=== PATIENT | male | born 1980 | race Caucasian/White ===

== ENCOUNTER 2017-11-21 11:54 | Inpatient (IN) | payer BC ==
[2017-11-21] VITALS (7 sets, daily range): BP systolic 108–135; BP diastolic 66–86
[~2017-11-21] VITALS: Ht 172.7 cm; Wt 70.3 kg
--- NOTE | 2017-11-21 12:00 | NUR ---
37 yo male bb self. patient is alet and oriented c/o lower abd pain with an episode of n/v. patient ambulated to er bed, skin warm and dry, resp even and unlabored. awaiting order from provider, will continue to monitor
[2017-11-21] MEDS ORDERED: MORPHINE SULFATE INJ 4 MG/ML DISP.SYRIN ONE (12:06)
[2017-11-21] MEDS ORDERED: ONDANSETRON HCL/PF 4 MG/2 ML VIAL ONE (12:06)
--- NOTE | 2017-11-21 12:14 | NUR ---
20g right ac iv started, blood sample obtained and sent to lab. medicated pt as ordered
[2017-11-21 12:17] LABS: BASOPHILS # (AUTO) 0.4 /CMM (0.0-0.2); BASOPHILS % (AUTO) 2.2 % (0.0-2.0); EOSINOPHILS % (AUTO) 0.1 % (0.0-6.0); HEMATOCRIT 45 % (39-51); HEMOGLOBIN 15.5 g/dL (13.5-17.5); LYMPHOCYTES # (AUTO) 0.8 /CMM (0.8-4.8); LYMPHOCYTES % (AUTO) 4.5 % (20.0-44.0); MEAN CORPUSCULAR HGB CONC 34 g/dl (31.0-36.0); MEAN CORPUSCULAR VOLUME 89 fL (80-96); MONOCYTES # (AUTO) 1.1 /CMM (0.1-1.30); MONOCYTES % (AUTO) 6.4 % (2.0-12.0); NEUTROPHILS # (AUTO) 14.7 /CMM (1.8-8.9); NEUTROPHILS % (AUTO) 86.8 % (43.0-81.0); PLATELET COUNT (AUTO) 186 /CMM (150-450); RDW COEFFICIENT OF VARIATION 12.7 (11.5-15.0); RED BLOOD CELL COUNT(AUTO) 5.06 MIL/uL (4.5-6.0)
[2017-11-21 12:18] LABS: APPEARANCE,URINE Clear (CLEAR); BILIRUBIN,URINE Negative (NEGATIVE); BLOOD, URINE Negative Ery/uL (NEGATIVE); COLOR,URINE Dark (YELLOW); KETONES,URINE Negative (NEGATIVE); LEUKOCYTE ESTERASE ,URINE Negative (NEGATIVE); NITRITE, URINE Negative (NEGATIVE); PROTEIN,URINE 30 mg/dl (NEGATIVE); UGLUCOSE Negative (NEGATIVE); UROBILINOGEN,URINE 0.2 EU/dL (0.2)
[2017-11-21 12:20] LABS: PH,URINE >9.0 (5.0-8.0)
[2017-11-21 12:24] LABS: BACTERIA,URINE None seen /HPF (None Seen); MUCUS,URINE Few /LPF (None Seen); RBC,URINE 0-2 /HPF (0-2); SQUAMOUS EPITHELIAL CELL,UR Rare /HPF (None Seen); WBC,URINE 0-3 /HPF (0-3)
[2017-11-21 12:27] LABS: CALCIUM, SERUM 9.2 mg/dL (8.5-10.1); CREATININE 0.8 mg/dL (0.6-1.3); POTASSIUM 3.5 mmol/L (3.5-5.1)
[2017-11-21] MEDS ORDERED: ONDANSETRON HCL/PF 4 MG/2 ML VIAL IVP ONE (12:30)
[2017-11-21] MEDS ORDERED: MORPHINE SULFATE INJ 2 MG/ML DISP.SYRIN IV ONE (12:30)
[2017-11-21] MEDS ORDERED: IV NS 0.9% 1,000 ML BAG IV ONE (12:30)
[2017-11-21 12:31] LABS: INR 0.99 (0.85-1.15)
[2017-11-21 12:32] LABS: ALBUMIN 4.7 g/dL (3.4-5.0); BILIRUBIN,DIRECT 0.3 mg/dL (0.0-0.2); BILIRUBIN,TOTAL 1.9 mg/dL (0.2-1.0); TOTAL PROTEIN, SERUM 8.4 g/dL (6.4-8.2)
--- NOTE | 2017-11-21 13:03 | NUR ---
CALLED DR TOMAS, ON THE PHONE WITH JOCELIN LOBATO.
[2017-11-21] MEDS ORDERED: PIPERACILLIN /TAZOBACTAM 3.375 G VIAL IV ONE (13:13)
--- NOTE | 2017-11-21 13:28 | NUR ---
radha BERMUDEZ took report for malachi
[2017-11-21] MEDS ORDERED: PIPERACILLIN /TAZOBACTAM 3.375 G in IV D5W 50 ML IV ONE (13:30)
--- NOTE | 2017-11-21 13:48 | NUR ---
patient transported to ms bed by waste transportation technician witghout incident
--- NOTE | 2017-11-21 13:55 | NUR ---
RN NOTES: PATIENT ARRIVED FROM ER. AOX4. NONLABORED BREATHING NOTED ON ROOM AIR. PATIENT DENYING PAIN AT THE MOMENT. DENYING NAUSEA AND VOMITING AT THE MOMENT. PATIENT REFUSING SKIN ASSESSMENT, STATING THAT SKIN IS INTACT. BED IN LOWEST LOCKED POSITION.CALL LIGHT WITHIN REACH.
[2017-11-21] MEDS ORDERED: BUPIVACAINE 0.25% 75 MG/30 ML VIAL ONE (16:01)
[2017-11-21] MEDS ORDERED: ANESTHESIA TRAY IN PYXIS 1 EA TRAY MC ONE (16:01)
--- NOTE | 2017-11-21 16:30 | NUR ---
PATIENT LEFT TO OR WITH STAFF MEMBERS FOR SURGERY
[2017-11-21] MEDS ORDERED: SUCCINYLCHOLINE CHLORIDE 20 MG/ML VIAL ONE (16:45)
--- NOTE | 2017-11-21 17:00 | NUR ---
DR ZAZUETA AWARE OF ADMISSION
[2017-11-21] MEDS ORDERED: CELLULOSE,OXIDIZED 1 EA PACK MC ONE (17:29)
[2017-11-21] MEDS ORDERED: FENTANYL PF 100MCG/2ML AMPUL ONE (17:55)
[2017-11-21] MEDS ORDERED: ONDANSETRON HCL/PF 4 MG/2 ML VIAL IVP PRN ×2 (18:30→19:00)
[2017-11-21] MEDS ORDERED: oxyCODONE/APAP (5/325 MG) 1 UDTAB TABLET PO PRN (18:30)
[2017-11-21] MEDS ORDERED: MORPHINE SULFATE INJ 4 MG/ML DISP.SYRIN IV PRN (18:30)
[2017-11-21] MEDS ORDERED: IV D5/0.45 NACL W/20 MEQ KCL 1L IV PRN ×2 (18:30)
[2017-11-21] MEDS ORDERED: ZOLPIDEM TARTRATE 5 MG TABLET PO PRN ×2 (18:30→19:00)
[2017-11-21] MEDS ORDERED: IV NS 0.9% 1,000 ML IV PRN (18:32)
--- NOTE | 2017-11-21 18:46 | NUR ---
PER DR TOMAS, DVT PUMPS, REGULAR DIET, CBC, BMP , MAG, PHOSP TOMORROW OUT OF BED TOLERATED
[2017-11-21] MEDS ORDERED: ACETAMINOPHEN 325 MG TABLET PO PRN (19:00)
[2017-11-21] MEDS ORDERED: Z GUARD REMEDY 2 OZ OINT TP PRN (19:00)
[2017-11-21] MEDS ORDERED: MORPHINE SULFATE INJ 2 MG/ML DISP.SYRIN IV PRN (19:00)
--- NOTE | 2017-11-21 19:20 | NUR ---
RN NOTES: PATIENT RETURNED FROM SURGERY AT 1845- CHECK VS TAB DENYING PAIN. AOX4. IV SITE ON RIGHT AC 20 PATENT AND INTACT. 3 DRESSINGS ON ABDOMEN INTACT CENTRAL CALLED FOR DVT PUMP. WILL ENDORSE TO NEXT SHIFT
--- NOTE | 2017-11-21 19:55 | NUR ---
MS RN NOTE: PATIENT RESTING IN BED, NO ACUTE DISTRESS NOTED. BREATHING EVEN AND UNLABORED, NO SOB NOTED. IV TO RAC IN PLACE. BED LOCKED AND IN LOWEST POSITION, CALL LIGHT IN REACH. WILL CONTINUE TO MONITOR.
[2017-11-21] MEDS: ANCEF 1 GM/50 ML D5W IV SCH ×2 (21:55)
[2017-11-22] MEDS ORDERED: PIPERACILLIN /TAZOBACTAM 3.375 G in IV D5W 50 ML IV SCH ×2
--- NOTE | 2017-11-22 00:05 | NUR ---
MS RN NOTE: PATIENT COMPLAINS OF ABDOMINAL PAIN 8/10, PERCOCET 5/325MG 1 TAB ORAL GIVEN PER MD ORDER. WILL CONTINUE TO MONITOR.
[2017-11-22] MEDS: ANCEF 1 GM/50 ML D5W IV SCH ×4 (05:01→12:53)
--- NOTE | 2017-11-22 06:40 | NUR ---
MS RN NOTE: PATIENT RESTING IN BED, NO ACUTE DISTRESS NOTED. BREATHING EVEN AND UNLABORED, NO SOB NOTED. IV TO RAC IN PLACE, INFUSING D5 1/2 NS WITH 20 MEQ KCL AT 75 ML/HR. BED LOCKED AND IN LOWEST POSITION, CALL LIGHT IN REACH. WILL ENDORSE TO DAY NURSE TO CONTINUE WITH PLAN OF CARE.
[2017-11-22 06:57] LABS: BASOPHILS % (AUTO) 0.1 % (0.0-2.0); EOSINOPHILS % (AUTO) 0.3 % (0.0-6.0); HEMATOCRIT 36 % (39-51); HEMOGLOBIN 12.7 g/dL (13.5-17.5); LYMPHOCYTES # (AUTO) 1.6 /CMM (0.8-4.8); MEAN CORPUSCULAR HGB CONC 36 g/dl (31.0-36.0); MEAN CORPUSCULAR VOLUME 89 fL (80-96); MONOCYTES # (AUTO) 0.9 /CMM (0.1-1.30); MONOCYTES % (AUTO) 7.5 % (2.0-12.0); NEUTROPHILS # (AUTO) 9.6 /CMM (1.8-8.9); NEUTROPHILS % (AUTO) 79.1 % (43.0-81.0); PLATELET COUNT (AUTO) 158 /CMM (150-450); RDW COEFFICIENT OF VARIATION 12.8 (11.5-15.0); RED BLOOD CELL COUNT(AUTO) 4.01 MIL/uL (4.5-6.0); WHITE BLOOD COUNT (AUTO) 12.2 K/uL (4.3-11.0)
[2017-11-22 07:23] LABS: ALBUMIN 3.5 g/dL (3.4-5.0); BILIRUBIN,TOTAL 1.2 mg/dL (0.2-1.0); CALCIUM, SERUM 8.6 mg/dL (8.5-10.1); CREATININE 0.9 mg/dL (0.6-1.3); MAGNESIUM 3.1 mg/dL (1.8-2.4); PHOSPHORUS 3.4 mg/dL (2.5-4.9); POTASSIUM 4.1 mmol/L (3.5-5.1)
--- NOTE | 2017-11-22 07:30 | NUR ---
PT RECEIVED RESTING COMFORTABLY IN BED WITH EYES CLOSED. NO S/S OR C/O PAIN OR DISTRESS NOTED. SIDE RAILS UP X2, CALL LIGHT LEFT WITHIN REACH. WILL CONTINUE PLAN OF CARE.
[2017-11-22 08:59] VITALS: BP 114/80
--- NOTE | 2017-11-22 15:00 | NUR ---
DISCHARGE INSTRUCTIONS GIVEN ORDERED. ENCOURAGED TO FOLLOW UP WITH PMD INSTRUCTED. ALL QUESTIONS AND CONCERNS ADDRESSED. PATIENT VERBALIZED UNDERSTANDING. MEDICATION RECONCILIATION FORM COMPLETED AND COPY GIVEN TO PATIENT. IV REMOVED WITH CATHETER INTACT, PRESSURE DRESSING APPLIED. PATIENT TAKEN TO VEHICLE WITH ALL PERSONAL BELONGINGS, ACCOMPANIED BY STAFF AND FAMILY MEMBER. NO DISTRESS NOTED AT TIME OF DEPARTURE.
== END 2017-11-22 15:00 | disposition home or self-care (01) | DRG 340 ==
LOC: ER 11:55 → MEDSG2 13:46
PROVIDERS: ADMIT Nurse Practitioner Acute Care; ATTEND Nurse Practitioner Acute Care
PROC: 0DTJ4ZZ Resection of Appendix, Percutaneous Endoscopic Approach (ICD-10-PCS; principal; 2017-11-21 17:11)
DX: K35.3 Acute appendicitis with localized peritonitis (principal); E80.6 Other disorders of bilirubin metabolism
CPT/HCPCS: 36415; 80048-TC; 80053-TC; 80076-TC; 81000-TC; 82962-TC; 83605-TC; 83690-TC; 83735-TC; 84100-TC; 85025-TC; 85730-TC; 86850-TC; 87040-TC; 88304-TC; 88305-TC; A4606; J0330; J0690; J1100; J2270; J2405; J2543; J2704; J2710; J3010; J3480; J3490; J7060; Z7610